=== PATIENT | female | born 1975 | race Caucasian/White ===

== ENCOUNTER 2019-08-15 05:00 | Day surgery (SDC) | payer MEDICAID ==
[2019-08-12 10:13] LABS: HEMATOCRIT 36.8 % (36.0-48.0); HEMOGLOBIN 11.7 g/dL (12-16); LYMPHOCYTES 32.2 % (15-50); MCH 26.1 pg (26.0-34.0); MCHC 31.8 g/dL (31.0-37.0); MEAN PLATELET VOLUME 10.8 fL (7.4-10.4); NEUTROPHILS 57.2 % (40-80); PLATELET COUNT 254 10x3/uL (130-400); RBC 4.49 10x6/uL (4.00-5.40); RDW 15.2 % (11.5-14.5); WBC 6.9 10x3/uL (4.8-10.8)
[2019-08-12 10:23] LABS: CALC OSMOLALITY 276 mosm/kg (275-300); CALCIUM 8.1 mg/dL (8.5-10.1); CARBON DIOXIDE 27.4 mmol/L (21.0-32.0); CHLORIDE - SERUM 105 mmol/L (98-107); CREATININE - SERUM 0.8 mg/dL (0.6-1.3); GLUCOSE 87 mg/dL (74-106); POTASSIUM - SERUM 3.6 mmol/L (3.5-5.1); SODIUM 138 mmol/L (136-145); UREA NITROGEN 18 mg/dL (7-18); eGFR NON AFRICAN AMERICAN 82 mL/min (90-120)
[2019-08-12 10:28] LABS: UDS - AMPHET NEGATIVE QUAL (NEGATIVE); UDS - BARB NEGATIVE QUAL (NEGATIVE); UDS - BENZO NEGATIVE QUAL (NEGATIVE); UDS - COCAINE NEGATIVE QUAL (NEGATIVE); UDS - OPIATE NEGATIVE QUAL (NEGATIVE); UDS - PCP NEGATIVE QUAL (NEGATIVE); UDS - THC NEGATIVE QUAL (NEGATIVE)
[~2019-08-15] VITALS: Ht 320 cm; Wt 94.3 kg
[2019-08-15] VITALS (14 sets, daily range): BP systolic 122–148; BP diastolic 63–92
[~2019-08-15 05:00] MED LIST: ADDERALL 20 MG20 M1 PO; CYCLOBENZAPRINE10 MG PO; INFED IM; LISINOPRIL-HCT1 EAC4 PO; LYRICA100 MG PO; TOPAMAX100 MG PO; ULTRAM50 MG PO
[2019-08-15 06:44] LABS: HCG URINE NEGATIVE (NEGATIVE)
--- NOTE | 2019-08-15 10:38 | NUR ---
TO ROOM 1278 VIA BED FROM RR. PT AWAKE AND VERBAL RESPONSES APPRO TO QUESTIONS. ABLE TO MOVE ALL EXTREMITIES. O2 PER NC ON ARRIVAL BUT REMOVED BY RR NURSE WITH O2 SAT AT 97. VS DONE. LAP INCISIONS X3 WITH DERMABOND0 ALL APPEARANCE WNL. [facility] CATH WITH APPRO 200CC CLEARISH YELLOW URINE. SCD'S ON. CO PAIN ON MOVEMENT AND RATES PAIN 6-7 ON SCALE OF 0-10. ICE CAP TO INCISION.
--- NOTE | 2019-08-15 12:13 | NUR ---
SITTING IN HIGH FOWLERS POSITION CONVERSING WITH SIGNIFICANT OTHER. POC DISCUSSED. [facility] CATH D/C'D WITH 750 MLS CLEAR LIGHT YELLOW URINE EMPTIED FROM [facility]. NANY CRACKERS AND LUNCH TRAY PROVIDED. PT ENCOURAGED TO EAT NANY PRIOR TO EATING TRAY, VERBALIZES UNDERSTANDING. DENIES NEEDS. BED IN LOW POSITION WITH SRUP X2. CALL LIGHT AND PHONE WITHIN REACH. SCD'S ON BLE. INCENTIVE SPIROMETER DONE WITH GOOD EFFORT.
--- NOTE | 2019-08-15 13:30 | NUR ---
pt states that pain is 0 unless moving about and then rates pain a 5 on scale of 0-10. up to bathroom to void. ambulatory without problem. voided 150cc into container. returns to bed. call light within reach.
--- NOTE | 2019-08-15 14:42 | NUR ---
dr preston calls unit and ask if pt wants to go home or stay overnight. pt states that she will stay overnight so she can rest. informed dr preston. new orders received.
--- NOTE | 2019-08-15 14:43 | NUR ---
PT STATES THAT SHE HAS BEEN UP TO VOID SINCE NURSE IN HER ROOM LAST- NOTED 500CC URINE IN CONTAINER.
--- NOTE | 2019-08-15 14:50 | NUR ---
PAIN MED GIVEN FOR CO STINGING PAIN ABD- INCISIONAL. RATES PAIN AN 8 ON SCALE OF 0-10. UP TO BATHROOM WITHOUT DIFFICULTY AND VOIDED 300CC.
--- NOTE | 2019-08-15 16:01 | NUR ---
rings call light- states that would like more pain medication- states that pain has eased up but still feels some cramping. rates pain a 6 on scale of 0-10. med given.
--- NOTE | 2019-08-15 16:06 | NUR ---
states she has also been up to void.
--- NOTE | 2019-08-15 17:40 | NUR ---
Pain reassessment completed. Pt up to bathroom. Steady gait noted. Denies needs.
--- NOTE | 2019-08-15 18:00 | NUR ---
abd soft- incisions wnl- no drainage. iv changed to saline lock and flushed with ns. states she is ready to walk.
--- NOTE | 2019-08-15 18:34 | NUR ---
ambulating in hallways- tolerated well.
--- NOTE | 2019-08-15 19:13 | NUR ---
RN TO PT BEDSIDE, PT STATES PAIN 4/10 TO ABDOMINAL INCISION SITES.INCISIONAL SITES DRY AND INTACT. PT DENIES ANY NEEDS AT THIS TIME.
--- NOTE | 2019-08-15 21:50 | NUR ---
RN TO PT BEDSIDE AT THIS TIME, PT CURRENTLY SLEEPING.
--- NOTE | 2019-08-16 00:14 | NUR ---
RN TO PT BEDSIDE FOR ROUNDING, PT SLEEPING AT THIS TIME, BED IN LOWEST POSITION, CALL LIGHT IN REACH, SIDE RAILS UPX2. SCD'S ON.
[2019-08-16 01:02] VITALS: BP 137/75
--- NOTE | 2019-08-16 01:03 | NUR ---
RN TO PT BEDSIDE, VSS. PT PERFORMED INCENTIVE SPIROMETRY, COUGH GOOD, DEEP BREATH GOOD, PT AMBULATED IN ROOM, PT COMPLAINS OF 7/10 PAIN TO ABDOMEN, PERCOCET 5MG-2 TABLETS ADMINISTERED, SEE EMAR. BED IN LOWEST POSITION, CALL LIGHT IN REACH, SIDE RAILS UPX2.
--- NOTE | 2019-08-16 03:07 | NUR ---
RN TO PT BEDSIDE FOR ROUNDING, PT STATES PAIN 6/10 TO ABDOMEN. RN ADMINISTERED NEUROTIN AND TORADOL PER MD ORDERS, REVIEW EMAR. PT STATES ALL OTHER NEEDS ARE MET, BED IN LOWEST POSITION, CALL LIGHT IN REACH, SIDE RAILS UPX2, SCD'S OFF, PT TO AMBULATE IN HALLWAY.
[2019-08-16 05:59] VITALS: BP 130/62
--- NOTE | 2019-08-16 06:00 | NUR ---
RN TO PT BEDSIDE FOR ROUNDING, PAIN 5/10 TO ABDOMEN, PT HAS SHOWERED AND IS NOW RESTING IN BED. PT DENIES ANY NEEDS AT THIS TIME.
--- NOTE | 2019-08-16 07:17 | NUR ---
Recieved pt sitting up in bed. Awake, alert and orientated. Vital signs stable. Heart rate regular rhythum. Lung sounds clear. Bowel sounds present X 4 quads. Abd soft. 3 lap incisions, with glue. Small amount of redness/brusing noted to all 3 incisions. No drainage noted. Pt denies vaginal discharge at this time. Negative homans signs. PPP No edema. States incisional pain of 5 on a zero to ten scale. Percocet 5 given po as ordered per patient complaints of pain. Patient request and recieves ice pack and sprite. Side rails up X 2. Call light in reach. Patient denies needs at this time.
[2019-08-16 07:34] VITALS: BP 130/70
--- NOTE | 2019-08-16 09:35 | NUR ---
PT AWAKE WATCHING TV. RATES PAIN 5 ON A PAIN SCALE OF 0 TO TEN. ICE PACK REFILLED PER PATIENT REQUEST. DENIES ANY NEEDS AT THIS TIME.
[2019-08-16 09:50] VITALS: BP 150/74; Ht 320 cm; Wt 94.3 kg
[2019-08-16] MEDS ORDERED: MOBIC7.5 MG PO ×2 (10:37→10:42)
[2019-08-16] MEDS ORDERED: PERCOCET 7.5/321 TAB PO (10:38)
[2019-08-16] MEDS ORDERED: NEURONTIN 300300 MG PO (10:40)
--- NOTE | 2019-08-16 10:40 | OP ---
PATIENT NAME: JANNETTE PATTERSON MEDICAL RECORD: [id number] :73 LOCATION:[id number] ADMISSION DATE: SURGEON: SAÚL BETANCOURT MD DATE OF OPERATION: 08/15/2019 PREOPERATIVE DIAGNOSES: 1. Dysfunctional uterine bleeding. 2. Dysmenorrhea. 3. Dyspareunia. POSTOPERATIVE DIAGNOSES: 1. Dysfunctional uterine bleeding. 2. Dysmenorrhea. 3. Dyspareunia. PROCEDURE: 1. Diagnostic laparoscopy. 2. Total laparoscopic hysterectomy. 3. Bilateral salpingo-oophorectomy. SURGEON: Saúl Betancourt MD MID LEVEL GAME DESIGNER: Jamel LPTA: ABIDA Valencia ANESTHESIOLOGIST: Dr. Perales. ANESTHETIC: General. FINDINGS: Uterus is enlarged and boggy. Both tubes were interrupted bilaterally. Ovaries are unremarkable. What was visualized of the abdominal anatomy was unremarkable. SPECIMENS REMOVED: Uterus, cervix, and bilateral tubes and ovary. SPECIMEN DISPOSITION: All specimens to pathology. ESTIMATED BLOOD LOSS: 100. FLUIDS: 1600 cc of lactated Ringer's. URINE OUTPUT: 200 cc of clear urine. COMPLICATIONS: None. DRAINS: Gutierrez to gravity. INDICATIONS: The patient is a 43-year-old female using tubal ligation for control. The patient has had longstanding history of heavy regular periods with pelvic pressure and pain. The patient also has discomfort with intercourse. The patient is consented for diagnostic laparoscopy, total laparoscopic hysterectomy, and bilateral salpingo-oophorectomy for suspected adenomyosis. DESCRIPTION OF PROCEDURE: After informed consent was assured, the patient was OPERATIVE REPORT [id number] JANNETTE PATTERSON taken to the operating room where anesthetic was obtained. The patient was placed in [facility] and prepped and draped. A uterine manipulator was placed and attention was directed to the abdomen where an incision was made to accommodate a 5-mm trocar. Pneumoperitoneum was developed. The accessory ports were placed in the right and left lower quadrant. Through the left lower quadrant port, a grasper was inserted with the patient in Trendelenburg position, the infundibulopelvic ligament of the right side was compressed, coagulated, and . This dissection was carried out underneath the ovary and tube across the round ligament and the anterior leaf of the broad ligament was opened. The bladder flap was developed to the midline. The posterior leaf dissected free of the vascular bundle, which was now compressed, coagulated, and at the level of the internal os. Attention was now directed to the left side. Infundibulopelvic ligament was compressed, coagulated, and in similar manner. The dissection was carried out underneath the left ovary and tube across the round ligament and the anterior leaf of the broad ligament was opened and the bladder flap now fully developed with both Thunderbeat coagulation cutter and peanut blunt dissection. After this had been performed, the vascular bundle of the left side was compressed, coagulated, and on the left side. The uterus was now removed from its attachment to the vaginal cuff. Starting at the 11 o'clock position and concluding at the 6 o'clock position. The uterus is freed from the vaginal cuff. Dissection continues down from the 11 to the 1 o'clock positions. The conclusion of the removal of the uterus from the cuff comes from the right side where the dissection was carried out from the 1 o'clock to the 6 o'clock position. The uterus was now placed into the abdomen. Both right and left ovaries were removed as well. The cuff was now closed with a running Stratafix on a CT-1. After the cuff has been closed, the pelvis was irrigated, irrigant removed and then the operative field inspected and found to be hemostatic. Sponge, lap, needle counts were correct times 2. The pneumoperitoneum was released and trocars were removed. All sites closed with a subcuticular stitch and Dermabond applied. TRANSINT:[id number] Voice Confirmation ID: [id number] DOCUMENT ID: [id number] SAÚL BETANCOURT MD at 1040 CC: [id number] DICTATION DATE: 08/15/19921 [employer]ARD: 08/15/192052 [facility] [address] [id number]
--- NOTE | 2019-08-16 11:04 | NUR ---
PT DRESSED TO GO HOME. RATES PAIN 10 ON A SCALE OF 0 TO 10. STATES PAIN GOT WORSE AFTER BENDING OVER TO PUT SOCKS AND SHOES ON. PAIN MEDICATION GIVEN PER PATIENT REQUEST. DENIES ANY NEEDS AT THIST TIME.
--- NOTE | 2019-08-16 12:04 | NUR ---
DISCHARGE INSTRUCTIONS GIVEN TO PATIENT PER MD ORDERS. IV DISCONTINUED, CATH INTACT, PRESSURE AND BANDAIDE APPLIED.
== END 2019-08-16 12:20 | disposition home or self-care (01) ==
LOC: D.OPS 05:00 → D.PAN 07:00 → D.OPS 08:15 → D.LD 09:59 → D.OPS 08-16 12:20
PROVIDERS: ATTEND Obstetrics & Gynecology
DX: N93.9 Abnormal uterine and vaginal bleeding, unspecified (principal); N94.6 Dysmenorrhea, unspecified; N94.10 Unspecified dyspareunia; R53.83 Other fatigue

== ENCOUNTER 2019-09-13 17:30 | Outpatient (CLI) | payer MEDICAID ==
[~2019-09-13 17:30] MED LIST changes: +MOBIC7.5 MG PO; +NEURONTIN 300300 MG PO; +PERCOCET 7.5/321 TAB PO
== END 2019-09-13 23:59 | disposition home or self-care (01) ==
LOC: D.MAMMO 17:30
PROVIDERS: ATTEND Obstetrics & Gynecology
DX: Z12.31 Encounter for screening mammogram for malignant neoplasm of breast (principal)